=== PATIENT | female | born 1995 | race Two or more races ===

== ENCOUNTER 2025-03-19 19:11 | Observation (INO) | payer SELFPAY ==
[2025-03-19 19:18] VITALS: BP 116/63; PULSE 83
[2025-03-19 19:19] VITALS: PULSE 92; O2SAT 98
[2025-03-19 19:20] VITALS: PULSE 82; O2SAT 90
[2025-03-19 19:24] VITALS: BP 116/63; PULSE 83; RESP 18; RESP 98; TEMP 36.5; BMI 27.8
[2025-03-19 20:47] VITALS: BP 123/75; PULSE 82
== END 2025-03-19 21:01 | disposition home or self-care (01) ==
PROVIDERS: Admitting Provider Specialist; PCP Family Medicine; Visit Provider Specialist
DX: O47.1 False labor at or after 37 completed weeks of gestation (principal); Z3A.38 38 weeks gestation of pregnancy
CPT/HCPCS: 59025; 59899; G0378

== ENCOUNTER 2025-03-25 16:44 | Observation (INO) | payer BC, SELFPAY ==
[2025-03-25] VITALS (11 sets, daily range): BP systolic 112–120; BP diastolic 58–64; PULSE 77–89; RESP 18–96; TEMP 36.6; O2SAT 96–99; BMI 27.8
== END 2025-03-25 19:02 | disposition home or self-care (01) ==
PROVIDERS: Admitting Provider Specialist; PCP Specialist; Visit Provider Specialist
DX: O26.853 Spotting complicating pregnancy, third trimester (principal); Z3A.39 39 weeks gestation of pregnancy
CPT/HCPCS: 59899

== ENCOUNTER 2025-03-26 04:05 | Inpatient (IN) | payer BC, SELFPAY ==
[2025-03-26] VITALS (128 sets, daily range): BP systolic 82–119; BP diastolic 44–77; PULSE 61–90; RESP 14–99; TEMP 36.2–36.8; O2SAT 85–100; BMI 27.6
--- NOTE | 2025-03-26 04:29 | PD.LDHP ---
Documentation for date of: 03/26/25 OB Labor/Induct. HPI History of Present Illness Chief complaint: labor pains : 3 Para: 2 Term pregnancies: 2 pregnancies: 2 Living children: 2 History of Abortions: Spontaneous and Elective: 0 History of sections: No History of : No History of present illness: 29-year-old 3 para 2-0-0-2 with intrauterine at 39 weeks and 1 day presents to labor and delivery complaining of contractions and was noted to be 6 cm. Category 1 tracing. care was uncomplicated with [facility].. She denies any leaking or bleeding. She reports normal movement. History of Present Narrative: Past medical history: Denies OB history: 2 previous full-term normal vaginal deliveries without complication Family history: Denies Social history: Denies any alcohol drug use or smoking Past surgical history: Denies Review of Systems Review of Systems Narrative Review of Systems: Denies any chest pain palpitations cough fever shortness of breath or lower extremity pain Past Medical History Surgical History SURGICAL: Negative Section Meds Home Medications and Allergies Home Medications ?Medication ?Instructions ?Recorded ?Confirmed ?Type cholecalciferol (vitamin D3) 25 25 mcg PO QDAY 04/07/23 03/26/25 History mcg (1,000 unit) tablet folic acid 1 mg tablet 1 mg PO QDAY 04/07/23 03/26/25 History vit no.95-ferrous 1 tab PO QDAY 04/07/23 03/26/25 History fumarate 28 mg-folic acid 800 mcg tablet () [id number] acid 1 tab PO QDAY 03/19/25 03/26/25 History Allergies Allergy/AdvReac Type Severity Reaction Status Date / Time No Known Allergies Allergy Verified 03/26/25 04:33 OB Exam Physical Exam Vital signs: Pulse Ox 100 03/26/25 04:25 Narrative: BP 107/63 HR 65 RR 18 T97.1 Routine HEENT Exam Comments: Oropharynx clear Routine Respiratory Exam Comments: Clear to auscultation bilaterally Routine Cardiovascular Exam Comments: Regular rate and rhythm Routine Abdominal Exam Comments: Gravid term size consistent with estimated weight 7.5 pounds Detailed Labor and Delivery Exam Dilation (cm): 6 Effacement (%): 80 station: -1 Presentation: Vertex Membranes: intact Comments: Per RN exam Routine Extremities Exam Comments: Tender Routine Skin Exam Comments: No gross rashes or lesions Routine Neurological Exam Comments: No focal deficit OB Results Labs 03/26/25 04:40 Impressions Impression: Intrauterine at 39 weeks and 1 day Active labor Anticipate spontaneous vaginal delivery Desires Epidural Informed consent was obtained: The patient was made aware of the risk complications alternatives and benefits of operative vaginal delivery and delivery and she agrees with these modes of delivery if indicated.
[2025-03-26] MEDS: RINGERS LACTATED 1000 ML 1,000 ML 100 ML IV (04:39)
[2025-03-26 04:52] LABS: Basophils % (Auto) 0 % (0-2.5); Eosinophils % (Auto) 0 % (0-10); Hematocrit 34.3 % (36.0-46.0); Immature Granulocytes % (Auto) 1 % (0-0); Immature Granulocytes Auto 0.04 Thou/mm3 (0.00-0.00); Lymphocytes # (Auto) 1.8 Thou/mm3 (1.0-4.8); Lymphocytes % (Auto) 20 % (10-50); Mean Corpuscular Hemoglobin 31.4 pg (25.0-35.0); Mean Corpuscular Volume 90 fL (80-100); Monocytes # (Auto) 0.7 Thou/mm3 (0.0-0.8); Monocytes % (Auto) 8 % (0-12); Neutrophils # (Auto) 6.1 Thou/mm3 (1.8-7.7); Neutrophils % (Auto) 71 % (37-80); Nucleated Red Blood Cell % 0 /100 WBC (0); Platelet Count 163 Thou/mm3 (140-440); RDW Standard Deviation 41.7 fL (36.4-46.3); Red Blood Count 3.82 Miln/mm3 (4.00-5.20); White Blood Count 8.7 Thou/mm3 (3.6-11.0)
[2025-03-26 05:44] LABS: Syphilis Nonreactive (Nonreactive)
[2025-03-26] MEDS: OXYTOCIN in NS 20 units 20 UNIT/1,000 ML BAG 125 UNIT IV (11:21)
[2025-03-26] MEDS: IBUPROFEN TAB 400 MG TABLET 800 MG PO ×2 (13:16→21:35)
[2025-03-26 17:05] LABS: Basophils % (Auto) 0 % (0-2.5); Eosinophils % (Auto) 0 % (0-10); Hematocrit 31.7 % (36.0-46.0); Hemoglobin 11.3 g/dL (12.0-16.0); Immature Granulocytes % (Auto) 0 % (0-0); Immature Granulocytes Auto 0.04 Thou/mm3 (0.00-0.00); Lymphocytes # (Auto) 1.5 Thou/mm3 (1.0-4.8); Lymphocytes % (Auto) 15 % (10-50); Mean Corpuscular HGB Conc 35.6 g/dl (31.0-37.0); Mean Corpuscular Hemoglobin 32.1 pg (25.0-35.0); Mean Corpuscular Volume 90 fL (80-100); Monocytes # (Auto) 0.8 Thou/mm3 (0.0-0.8); Monocytes % (Auto) 8 % (0-12); Neutrophils # (Auto) 7.5 Thou/mm3 (1.8-7.7); Neutrophils % (Auto) 76 % (37-80); Nucleated Red Blood Cell % 0 /100 WBC (0); Platelet Count 131 Thou/mm3 (140-440); RDW Standard Deviation 42.2 fL (36.4-46.3); Red Blood Count 3.52 Miln/mm3 (4.00-5.20); White Blood Count 9.8 Thou/mm3 (3.6-11.0)
[2025-03-27 03:37] VITALS: BP 91/55; PULSE 69; RESP 16; TEMP 37; O2SAT 98
[2025-03-27] MEDS: ACETAMINOPHEN 325 MG TABLET 650 MG PO (03:57)
--- NOTE | 2025-03-27 05:37 | OBDSUM_ITS ---
Data ([facility]) Data Hx Section: No Maternal Blood Type: O Pos Rubella Titre: Positive RPR: Non-reactive Labs: Negative: RPR, Hepatitis B, HIV and Group Beta Strep and Unknown: Chlamydia, Gonorrhea, Herpes Type 1 and Herpes Type 2 : 3 Term: 2 : 2 Livin Abortions: Spontaneous & Theraputic: 0 Delivery Data ([facility]) Labor Data Initiation of labor: Spontaneous Induction/Augmentation Agent: None ROM date: 03/26/25 ROM time: 10:13 Amniotic membrane rupture type: Artificial Amniotic fluid description: Clear Delivery Data EDC: 04/01/25 EDC calculated by:: LMP/early US confirmation Onset of labor date: 03/25/25 Onset of labor time: 22:00 Complete dilation date: 03/26/25 Complete dilation time: 10:13 delivery date: 03/26/25 [place] delivery time: 10:16 Gestational age (weeks): 39 Gestational age (days): 1 Placenta delivery date: 03/26/25 Placenta delivery time: 10:21 Stage 1 total time: Labor - Stage 1 Duration 12 hours and 13 minutes Delivered by: Dr Nicholson Delivery nurse: Winnie Hough RN [place] nurse: Tracy Urban RN Investigation Division Captain at delivery: No Support person(s) at delivery: FOB Delivery Method Delivery method: Normal Vaginal Delivery Presentation: Vertex position: OA Anesthesia Type Anesthesia Type: Epidural Placenta Placenta delivery description: Spontaneous Cord blood sent to lab: Yes cord blood collection: Cord Blood Type Episiotomy Episiotomy description: None Lacerations #1: Periurethral: Right first degree periurethral Perineal repair Sutures used for repair: 4.0 Chromic EBL Estimated blood loss (ml): 100 Umbilical Cord cord description: 3 Vessels, Nuchal Cord (X2) and Loose Additional Procedures The patient is a 29-year-old -0-0-2 who came into labor and delivery around 4:00 in the morning in active labor on 03/26/2025. All care is up-to-date in the chart with [facility]. Patient was around 5 cm when she presented. She had a labor epidural placed and was signed out to me about 7:00 in the morning when she was 6 cm dilated. I examined the patient about 8:45 in the morning and she was 8 cm dilated she went on to rapidly progressed to complete by 1013 in the morning without the aid of Pitocin. An amniotomy was performed at that time and clear fluid was noted. The patient then went on to put push through 1 contraction delivering a liveborn male at 10:16 AM. Findings liveborn male in the SUHAS presentation with a loose nuchal cord x 2 no meconium. Apgars were 9 and 9 weight was 7 pounds 9 ounces. The placenta was complete spontaneous grossly normal delivering within 5 minutes of the baby delivering. Patient sustained a very small right first-degree periurethral laceration repaired in a standard fashion using 4-0 chromic. EBL was 100 cc. Complications were none. Condition both mother and were in stable condition the delivery room. Complications Complications: None [place] Data ([facility]) Data order: 1 [place]'s gender: Male Identification band number: [id number] weight (gms): 3440 g Weight (pounds): 7 lbs and 9.3 ozs length: 50 cm 1 minute: 9 5 minutes: 9
[2025-03-27 08:00] VITALS: BP 111/73; PULSE 75; RESP 16; TEMP 36.7; O2SAT 97
[2025-03-27] MEDS: IBUPROFEN TAB 400 MG TABLET 800 MG PO (11:19)
[2025-03-27 12:35] VITALS: BP 105/66; PULSE 80; RESP 18; TEMP 36.7; O2SAT 99
--- NOTE | 2025-03-27 12:43 | PD.LDPPPRG ---
Subjective Subjective Interval history: Delivery type: Patient doing well this morning. No acute complaints. Ambulating, tolerating p.o. and voiding without difficulty. HTN/Pre-Eclampsia screen: No chest pain, shortness of breath, headache, visual changes, epigastric or right upper quadrant pain. Breast-feeding, lochia diminishing. Bowel: Flatus+/ BM+ Exam Vital Signs Temp Pulse Resp BP Pulse Ox O2 Del Method 98.1 F 75 16 111/73 97 Room Air 03/27/25 08:00 03/27/25 08:00 03/27/25 08:00 03/27/25 08:00 03/27/25 08:00 03/27/25 08:00 Constitutional Constitutional: no acute distress Routine HEENT Exam Head: Present normocephalic and atraumatic Eye: Present EOMI and PERRL ENT: Present mucous membranes moist Routine Neck Exam Neck: Present supple and trachea midline Routine Respiratory Exam Respiratory: Present chest non-tender, lungs clear, normal breath sounds and no resp distress Routine Cardiovascular Exam Cardiovascular: Present RRR Routine Abdominal Exam Abdominal: Present soft and normoactive bowel sounds Routine Extremities Exam Extremities: Present full ROM Routine Skin Exam Skin: Present intact, dry and warm Routine Neurological Exam Neurological: Present alert, oriented X3 and CN II-XII intact Routine Psychiatric Exam Psychiatric: Present normal affect and normal thought process Objective Labs 03/26/25 16:43 Labs: Laboratory Results - last 24 hr 03/26/25 16:43 WBC 9.8 RBC 3.52 L Hgb 11.3 L Hct 31.7 L MCV 90 MCH 32.1 MCHC 35.6 RDW Std Deviation 42.2 Plt Count 131 L D Neut % (Auto) 76 Lymph % (Auto) 15 [place] % (Auto) 8 Eos % (Auto) 0 Baso % (Auto) 0 Neut # (Auto) 7.5 Lymph # (Auto) 1.5 [place] # (Auto) 0.8 Eos # (Auto) 0.0 Baso # (Auto) 0.0 Immature Gran # (Auto) 0.04 H Absolute Nucleated RBC 0.00 Immature Gran % 0 Nucleated RBC % 0 Assessment & Plan Problem List (1) Encounter for care of lactating mother: Status: Acute (2) Multigravida in third trimester: Status: Acute (3) (normal spontaneous vaginal delivery): Status: Acute (4) care following vaginal delivery: Status: Acute Assessment and plan: 1. Continue routine /post-op care 2. Labs reviewed, cbc appropriate 3. Remove dressing/[place] 4. Encourage to ambulate, shower 5. Encourage PO intake, breast feeding Time Spent With Patient Time: Total time spent is greater than 50% in coordination of care (as documented) at patient's floor/unit and/or counseling patient:
--- NOTE | 2025-03-27 12:44 | ESDS_ITS ---
DS: Providers Provider Date of admission: 03/26/25 04:25 Primary care physician: Physician No Primary/Family Admitting Provider: Elpidio Crocker MD Attending Provider on Admission: Rony Talley MD Consults: 03/26/25 10:30 Referral Routine Comment: Attending Provider on DC: Rony Talley MD Discharging Provider: Rony Talley MD DS: Diagnosis Discharge Diagnosis (1) Encounter for care of lactating mother: Status: Acute (2) Multigravida in third trimester: Status: Acute (3) with 38 completed weeks gestation: Status: Acute (4) (normal spontaneous vaginal delivery): Status: Acute Problem List Completed Was Problem List Reviewed/Reconciled?: Yes Summary/Hosp Course Brief History: 29-year-old 3 para 2-0-0-2 with intrauterine at 39 weeks and 1 day presents to labor and delivery complaining of contractions and was noted to be 6 cm. Category 1 tracing. care was uncomplicated with [facility].. She denies any leaking or bleeding. She reports normal f etal movement. Peripartum Data Delivery Method: Normal Vaginal Delivery Episiotomy Description: None Time Spent with Patient Time attestation: Total time spent providing and/or coordinating discharge services: Exam Vital Signs Temp Pulse Resp BP Pulse Ox O2 Del Method 98.1 F 75 16 111/73 97 Room Air 03/27/25 08:00 03/27/25 08:00 03/27/25 08:00 03/27/25 08:00 03/27/25 08:00 03/27/25 08:00 Discharge Plan Plan Patient Disposition: HOME (Self Care) Patient condition on transfer: Stable Prescriptions/Referrals Prescriptions/Med Rec: New ibuprofen 600 mg tablet 600 mg PO Q6H MDD 4 PRN (Reason: fever or pain) 10 Days Qty: 40 0RF Continued [id number] acid [ 19] 1 tab PO QDAY cholecalciferol (vitamin D3) 25 mcg (1,000 unit) tablet 25 mcg PO QDAY PNV cmb#95-ferrous fumarate-FA [] 28 mg iron- 800 mcg tablet 1 tab PO QDAY Patient Comments: TAKE 1 TABLET BY MOUTH EVERY DAY docusate sodium [Colace] 100 mg capsule 100 mg PO BID Qty: 60 0RF lanolin 50 % ointment 1 applic topical TID PRN (Reason: skin irritation) Qty: 15 0RF Discontinued folic acid 1 mg tablet 1 mg PO QDAY Patient Comments: TAKE 1 TABLET BY MOUTH EVERY DAY ibuprofen 800 mg tablet 800 mg PO Q6H MDD 4 PRN (Reason: pain) Qty: 90 0RF Referrals: Irena Osorio MD [Physician] - No Primary/Family,Physician [Primary Care Provider] - Patient/Caregiver Discharge Instructions Print Language: Armenian Stand Alone Forms: [facility] Award Info., Patient Portal Info Letter Discharge Order Discharge Orders: Discharge (Routine); Ordered 03/27/25 Ordered By: Rony Talley Planned Discharge Date 03/27/25
== END 2025-03-27 13:55 | disposition home or self-care (01) | DRG 807 ==
LOC: S4SX 11:02 → S4NX 13:21
PROVIDERS: Obstetrics & Gynecology; Admitting Provider Specialist; Visit Provider Obstetrics & Gynecology
DX: O69.81X0 Labor and delivery complicated by cord around neck, without compression, not applicable or unspecified (principal); Z37.0 Single live birth; O71.82 Other specified trauma to perineum and vulva; Z3A.39 39 weeks gestation of pregnancy
CPT/HCPCS: 36415; 85025; 86780; 86850; 86900; 86901; J2590; J2795; J3010; J7120; A9270